=== PATIENT | male | born 2000 | race African-American/Black ===

== ENCOUNTER 2024-09-30 13:00 | Emergency (ER) | payer OTHER ==
[~2024-09-30] VITALS: Ht 167.6 cm; Wt 127.3 kg
[2024-09-30 13:11] VITALS: BP 117/67; PULSE 90; RESP 18; TEMP 98; O2SAT 99
[2024-09-30] MEDS: IBUPROFEN 600 MG TABLET PO ONE (14:02)
[2024-09-30] MEDS: ACETAMINOPHEN 500 MG TABLET PO ONE (14:02)
[2024-09-30] MEDS ORDERED: ACET-66 PO (14:03)
[2024-09-30] MEDS ORDERED: IBUP-1554 PO (14:03)
== END 2024-09-30 14:28 | disposition home or self-care (01) ==
LOC: EMS 13:00
DX: S63.501A Unspecified sprain of right wrist, initial encounter (principal); Z98.890 Other specified postprocedural states; Z89.121 Acquired absence of right wrist; Z79.899 Other long term (current) drug therapy; Z88.5 Allergy status to narcotic agent; X50.0XXA Overexertion from strenuous movement or load, initial encounter; Y93.89 Activity, other specified; Y92.89 Other specified places as the place of occurrence of the external cause; Y99.8 Other external cause status
CPT/HCPCS: 99284; 73110-TC; 73130-TC; Z7502; Z7610